=== PATIENT | female | born 1960 | race Caucasian/White ===

== ENCOUNTER 2021-04-07 15:15 | Inpatient (IN) | payer MEDICARE ==
[2021-04-07] MEDS ORDERED: hydrOXYzine 25 MG TAB PER TUBE PRN (20:02)
[2021-04-07] MEDS: Acetaminophen W/ Codeine 5 ML UDCUP PER TUBE PRN (20:14)
[2021-04-07] MEDS ORDERED: Heparin 5,000 UNITS/ML VIAL SC SCH (21:00)
[2021-04-07] MEDS ORDERED: Melatonin 3 MG TAB PER TUBE PRN (21:35)
[2021-04-07] MEDS ORDERED: Lorazepam 0.5 MG TAB PO PRN (21:35)
[2021-04-07] MEDS ORDERED: Metoprolol Tartrate 50 MG TAB PER TUBE SCH (21:45)
[2021-04-07] MEDS ORDERED: PROGESTERONE,MICRONIZED 100 MG CAP PER TUBE SCH (22:00)
[2021-04-07] MEDS ORDERED: Mirtazapine 15 MG Soltab PER TUBE SCH (22:00)
[2021-04-07] MEDS ORDERED: Pantoprazole 40 MG GRANULES PACKET PER TUBE SCH (22:00)
[2021-04-08] MEDS ORDERED: Sodium Chloride 0.9% 20 ML ONE (05:10)
[2021-04-08] MEDS: Levothyroxine Sodium 75 MCG TAB PER TUBE SCH (05:32)
[2021-04-08] MEDS ORDERED: traZODone HCl 50 MG TAB PER TUBE PRN (05:58)
[2021-04-08] MEDS ORDERED: ACETAMINOPHEN 650 MG/20.3 ML PER TUBE PRN (05:58)
[2021-04-08] MEDS ORDERED: UDCUP PER TUBE PRN (05:58)
[2021-04-08] MEDS ORDERED: hydrOXYzine 25 MG TAB PER TUBE PRN (05:58)
[2021-04-08 06:03] LABS: #Basophils 0.1 thou/uL (0.0-0.2); #Eosinphils 0.4 thou/uL (0.0-0.7); #Lymphocytes 2.4 thou/uL (1.20-3.40); #Monocytes 0.6 thou/uL (0.11-0.59); %Basophils 0.5 % (0.0-1.0); %Eosinophils 3.8 % (0.0-10.0); %Monocytes 5.3 % (0.0-10.0); %Neutrophils 67.4 % (42.0-75.0); Hemoglobin 9.2 g/dL (12.0-16.0); Mean Corpuscular Hemoglobin 30.6 pg (27.0-31.0); Mean Corpuscular Volume 98.8 fL (78.0-98.0); Mean Platelet Volume 7.8 fL (7.4-10.4); Platelet Count 263 thou/uL (130-400); RBC Distribution Width 17.1 % (11.5-14.5); Red Blood Cell (RBC) Count 3.02 mill/uL (4.20-5.40); White Blood Cell (WBC) Count 10.3 thou/uL (4.8-10.8)
[2021-04-08 06:21] LABS: ALT (SGPT) 39 U/L (8-55); AST (SGOT) 29 U/L (5-34); Albumin 3.1 g/dL (3.5-5.0); Alkaline Phosphatase 228 U/L (40-110); Anion Gap 14 mmol/L (10-20); BUN (Urea Nitrogen) 37 mg/dL (9.8-20.1); Bilirubin, Total 0.4 mg/dL (0.2-1.2); Calc. Creatinine Clearance 35 mL/min (70-130); Calcium 8.6 mg/dL (7.8-10.44); Carbon Dioxide 28 mmol/L (22-29); Chloride 101 mmol/L (98-107); Globulin 3.8 g/dL (2.4-3.5); Glucose 112 mg/dL (70-105); Potassium 4.3 mmol/L (3.5-5.1); Protein, Total 6.9 g/dL (6.0-8.3); Sodium 139 mmol/L (136-145)
[2021-04-08] MEDS ORDERED: Ferrous Sulfate 325 MG TAB PO SCH (08:00)
[2021-04-08] MEDS ORDERED: Bupropion 150 MG XL TAB PO SCH (09:00)
[2021-04-08] MEDS ORDERED: Non-Formulary Item 1 EACH (Rosuvastatin [Crestor] 20 MG Tab) PER TUBE SCH (09:00)
[2021-04-08] MEDS ORDERED: Amlodipine 5 MG TAB PER TUBE SCH (09:00)
[2021-04-08] MEDS ORDERED: TRULICITY SC SCH (09:00)
[2021-04-08] MEDS ORDERED: Metoprolol Tartrate 50 MG TAB PER TUBE SCH (09:00)
[2021-04-08] MEDS ORDERED: Pantoprazole 40 MG GRANULES PACKET PER TUBE SCH (09:00)
[2021-04-08] MEDS ORDERED: Non-Formulary Item 1 EACH (Estradiol [Estradiol] 0.5 MG Tablet) PER TUBE SCH (09:00)
[2021-04-08] MEDS: Amlodipine 5 MG TAB PER TUBE SCH (09:38)
[2021-04-08] MEDS: Estradiol 1 MG TAB PER TUBE SCH (09:39)
[2021-04-08] MEDS: Heparin 5,000 UNITS/ML VIAL SC SCH ×3 (09:39→20:09)
[2021-04-08] MEDS: Metoprolol Tartrate 50 MG TAB PER TUBE SCH ×2 (09:40→20:10)
[2021-04-08] MEDS: Rosuvastatin 10 MG TAB PER TUBE SCH (09:41)
[2021-04-08] MEDS: Pantoprazole 40 MG GRANULES PACKET PER TUBE SCH ×2 (09:41→20:09)
[2021-04-08] MEDS: Acetaminophen W/ Codeine 5 ML UDCUP PER TUBE PRN ×3 (10:22→20:08)
[2021-04-08] MEDS: Ondansetron ODT 4 MG TAB SL PRN ×2 (13:32→18:07)
[2021-04-08] MEDS: Mirtazapine 15 MG Soltab PER TUBE SCH (20:09)
[2021-04-08] MEDS: buPROPion 75 MG TAB PER TUBE SCH (20:09)
[2021-04-08] MEDS: PROGESTERONE,MICRONIZED 100 MG CAP PER TUBE SCH (20:13)
[2021-04-08] MEDS ORDERED: buPROPion 75 MG TAB PO SCH (21:00)
[2021-04-08] MEDS ORDERED: MIRTAZAPINE 30 MG PER TUBE SCH (21:00)
[2021-04-08] MEDS ORDERED: PROGESTERONE MICRONIZED 100 MG PER TUBE SCH (21:00)
[2021-04-09] MEDS: Ondansetron ODT 4 MG TAB SL PRN (01:57)
[2021-04-09] MEDS: traZODone HCl 50 MG TAB PER TUBE PRN (01:59)
[2021-04-09] MEDS: Melatonin 3 MG TAB PER TUBE PRN (01:59)
[2021-04-09] MEDS ORDERED: Sodium Chloride 0.9% 20 ML ONE (05:07)
[2021-04-09] MEDS: Levothyroxine Sodium 75 MCG TAB PER TUBE SCH (05:52)
[2021-04-09] MEDS: Acetaminophen W/ Codeine 5 ML UDCUP PER TUBE PRN ×3 (05:52→21:29)
[2021-04-09] MEDS ORDERED: Levothyroxine Sodium 75 MCG TAB PER TUBE SCH (06:00)
[2021-04-09] MEDS: Amlodipine 5 MG TAB PER TUBE SCH (09:28)
[2021-04-09] MEDS: buPROPion 75 MG TAB PER TUBE SCH ×2 (09:29→21:28)
[2021-04-09] MEDS: Estradiol 1 MG TAB PER TUBE SCH (09:29)
[2021-04-09] MEDS: Heparin 5,000 UNITS/ML VIAL SC SCH ×3 (09:29→21:29)
[2021-04-09] MEDS: Metoprolol Tartrate 50 MG TAB PER TUBE SCH ×2 (09:30→21:28)
[2021-04-09] MEDS: Pantoprazole 40 MG GRANULES PACKET PER TUBE SCH ×2 (09:30→21:28)
[2021-04-09] MEDS: Rosuvastatin 10 MG TAB PER TUBE SCH (09:30)
[2021-04-09] MEDS: Mirtazapine 15 MG Soltab PER TUBE SCH (21:28)
[2021-04-09] MEDS: PROGESTERONE,MICRONIZED 100 MG CAP PER TUBE SCH (21:51)
[2021-04-10] MEDS: Ondansetron ODT 4 MG TAB SL PRN ×2 (05:26→10:38)
[2021-04-10] MEDS: Levothyroxine Sodium 75 MCG TAB PER TUBE SCH (05:27)
[2021-04-10] MEDS: Acetaminophen W/ Codeine 5 ML UDCUP PER TUBE PRN ×4 (05:27→19:22)
[2021-04-10] MEDS ORDERED: EPOETIN ALFA EPBX SC SCH ×2 (09:00)
[2021-04-10] MEDS: Pantoprazole 40 MG GRANULES PACKET PER TUBE SCH ×2 (09:29→20:30)
[2021-04-10] MEDS: Heparin 5,000 UNITS/ML VIAL SC SCH ×3 (09:29→20:27)
[2021-04-10] MEDS: Rosuvastatin 10 MG TAB PER TUBE SCH (09:30)
[2021-04-10] MEDS: Metoprolol Tartrate 50 MG TAB PER TUBE SCH ×2 (09:30→20:27)
[2021-04-10] MEDS: Estradiol 1 MG TAB PER TUBE SCH (09:31)
[2021-04-10] MEDS: Amlodipine 5 MG TAB PER TUBE SCH (09:31)
[2021-04-10] MEDS: buPROPion 75 MG TAB PER TUBE SCH ×2 (09:33→20:27)
[2021-04-10] MEDS: EPOETIN ALFA-EPBX (ESRD) 10,000 UNIT/ML VIAL SC SCH (09:38)
[2021-04-10 14:03] LABS: SARS-CoV-2 NAA Rapid Test Not Detected (NotDetected)
[2021-04-10] MEDS: Mirtazapine 15 MG Soltab PER TUBE SCH (20:27)
[2021-04-10] MEDS: PROGESTERONE,MICRONIZED 100 MG CAP PER TUBE SCH (20:27)
[2021-04-11] MEDS: traZODone HCl 50 MG TAB PER TUBE PRN (01:08)
[2021-04-11] MEDS: Melatonin 3 MG TAB PER TUBE PRN ×2 (01:08→21:14)
[2021-04-11] MEDS: Acetaminophen W/ Codeine 5 ML UDCUP PER TUBE PRN ×4 (01:08→17:38)
[2021-04-11] MEDS: Levothyroxine Sodium 75 MCG TAB PER TUBE SCH (05:29)
[2021-04-11] MEDS: Amlodipine 5 MG TAB PER TUBE SCH (08:43)
[2021-04-11] MEDS: Metoprolol Tartrate 50 MG TAB PER TUBE SCH ×2 (08:45→21:12)
[2021-04-11] MEDS: Estradiol 1 MG TAB PER TUBE SCH (08:47)
[2021-04-11] MEDS: buPROPion 75 MG TAB PER TUBE SCH ×2 (08:47→21:12)
[2021-04-11] MEDS: Pantoprazole 40 MG GRANULES PACKET PER TUBE SCH ×2 (08:48→21:14)
[2021-04-11] MEDS: Rosuvastatin 10 MG TAB PER TUBE SCH (08:49)
[2021-04-11] MEDS: Heparin 5,000 UNITS/ML VIAL SC SCH ×3 (09:06→21:12)
[2021-04-11] MEDS: Ondansetron ODT 4 MG TAB SL PRN ×2 (18:25→21:13)
[2021-04-11] MEDS: Mirtazapine 15 MG Soltab PER TUBE SCH (21:12)
[2021-04-11] MEDS: PROGESTERONE,MICRONIZED 100 MG CAP PER TUBE SCH (21:14)
[2021-04-12] MEDS: Acetaminophen W/ Codeine 5 ML UDCUP PER TUBE PRN ×4 (00:48→17:29)
[2021-04-12] MEDS: Levothyroxine Sodium 75 MCG TAB PER TUBE SCH (07:26)
[2021-04-12] MEDS: Rosuvastatin 10 MG TAB PER TUBE SCH (08:21)
[2021-04-12] MEDS: Metoprolol Tartrate 50 MG TAB PER TUBE SCH ×2 (08:22→21:10)
[2021-04-12] MEDS: buPROPion 75 MG TAB PER TUBE SCH ×2 (08:22→21:10)
[2021-04-12] MEDS: Amlodipine 5 MG TAB PER TUBE SCH (08:22)
[2021-04-12] MEDS: Estradiol 1 MG TAB PER TUBE SCH (08:22)
[2021-04-12] MEDS: Pantoprazole 40 MG GRANULES PACKET PER TUBE SCH ×2 (08:22→20:49)
[2021-04-12] MEDS: Heparin 5,000 UNITS/ML VIAL SC SCH ×3 (08:25→21:09)
[2021-04-12] MEDS: EPOETIN ALFA-EPBX (ESRD) 10,000 UNIT/ML VIAL SC SCH (08:37)
[2021-04-12] MEDS: Loratadine 10 MG TAB PO PRN (08:37)
[2021-04-12] MEDS: Ondansetron ODT 4 MG TAB SL PRN ×3 (08:37→20:48)
[2021-04-12] MEDS: traZODone HCl 50 MG TAB PER TUBE PRN (21:10)
[2021-04-12] MEDS: Lorazepam 0.5 MG TAB PER TUBE PRN (21:10)
[2021-04-12] MEDS: Melatonin 3 MG TAB PER TUBE PRN (21:10)
[2021-04-12] MEDS: PROGESTERONE,MICRONIZED 100 MG CAP PER TUBE SCH (21:11)
[2021-04-13] MEDS: Levothyroxine Sodium 75 MCG TAB PER TUBE SCH (06:10)
[2021-04-13] MEDS: Acetaminophen W/ Codeine 5 ML UDCUP PER TUBE PRN ×3 (08:52→20:28)
[2021-04-13] MEDS: Estradiol 1 MG TAB PER TUBE SCH (08:54)
[2021-04-13] MEDS: Pantoprazole 40 MG GRANULES PACKET PER TUBE SCH ×2 (08:55→20:29)
[2021-04-13] MEDS: Rosuvastatin 10 MG TAB PER TUBE SCH (08:55)
[2021-04-13] MEDS: buPROPion 75 MG TAB PER TUBE SCH ×2 (08:55→20:29)
[2021-04-13] MEDS: Heparin 5,000 UNITS/ML VIAL SC SCH ×3 (08:58→20:30)
[2021-04-13] MEDS: Loratadine 10 MG TAB PO PRN (09:10)
[2021-04-13] MEDS: Ondansetron ODT 4 MG TAB SL PRN (09:11)
[2021-04-13] MEDS: Amlodipine 5 MG TAB PER TUBE SCH (09:12)
[2021-04-13] MEDS: Metoprolol Tartrate 50 MG TAB PER TUBE SCH ×2 (09:13→20:30)
[2021-04-13] MEDS: PROGESTERONE,MICRONIZED 100 MG CAP PER TUBE SCH (20:31)
[2021-04-13] MEDS: Melatonin 3 MG TAB PER TUBE PRN (20:45)
[2021-04-13] MEDS: Lorazepam 0.5 MG TAB PER TUBE PRN (21:58)
[2021-04-14] MEDS: Levothyroxine Sodium 75 MCG TAB PER TUBE SCH (05:12)
[2021-04-14 05:35] LABS: #Basophils 0.1 thou/uL (0.0-0.2); #Eosinphils 0.2 thou/uL (0.0-0.7); #Lymphocytes 2.7 thou/uL (1.20-3.40); #Monocytes 0.6 thou/uL (0.11-0.59); #Neutrophils 6.9 thou/uL (1.40-6.50); %Basophils 1.1 % (0.0-1.0); %Lymphocytes 25.2 % (21.0-51.0); %Monocytes 6.1 % (0.0-10.0); %Neutrophils 65.6 % (42.0-75.0); Hemoglobin 9.1 g/dL (12.0-16.0); Mean Corpuscular HGB CONC 31.8 g/dL (32.0-36.0); Mean Corpuscular Hemoglobin 31.1 pg (27.0-31.0); Mean Corpuscular Volume 97.8 fL (78.0-98.0); Mean Platelet Volume 9.1 fL (7.4-10.4); Platelet Count 235 thou/uL (130-400); RBC Distribution Width 16.4 % (11.5-14.5); Red Blood Cell (RBC) Count 2.94 mill/uL (4.20-5.40); White Blood Cell (WBC) Count 10.6 thou/uL (4.8-10.8)
[2021-04-14 05:41] LABS: Anion Gap 14 mmol/L (10-20); BUN (Urea Nitrogen) 20 mg/dL (9.8-20.1); Calc. Creatinine Clearance 47 mL/min (70-130); Calcium 8.5 mg/dL (7.8-10.44); Carbon Dioxide 28 mmol/L (22-29); Chloride 99 mmol/L (98-107); Glucose 109 mg/dL (70-105); Potassium 3.4 mmol/L (3.5-5.1); Sodium 138 mmol/L (136-145)
[2021-04-14] MEDS: Rosuvastatin 10 MG TAB PER TUBE SCH (08:55)
[2021-04-14] MEDS: buPROPion 75 MG TAB PER TUBE SCH ×2 (08:55→19:59)
[2021-04-14] MEDS: Estradiol 1 MG TAB PER TUBE SCH (08:55)
[2021-04-14] MEDS: Pantoprazole 40 MG GRANULES PACKET PER TUBE SCH ×2 (08:56→20:01)
[2021-04-14] MEDS: Heparin 5,000 UNITS/ML VIAL SC SCH ×3 (08:56→20:00)
[2021-04-14] MEDS: EPOETIN ALFA-EPBX (ESRD) 10,000 UNIT/ML VIAL SC SCH (09:00)
[2021-04-14] MEDS: Acetaminophen W/ Codeine 5 ML UDCUP PER TUBE PRN ×3 (09:01→19:54)
[2021-04-14] MEDS: Metoprolol Tartrate 50 MG TAB PER TUBE SCH ×2 (09:01→19:59)
[2021-04-14] MEDS: Loratadine 10 MG TAB PO PRN (09:11)
[2021-04-14] MEDS: PROGESTERONE,MICRONIZED 100 MG CAP PER TUBE SCH (20:01)
[2021-04-14] MEDS: Lorazepam 0.5 MG TAB PER TUBE PRN (22:51)
[2021-04-15] MEDS: Acetaminophen W/ Codeine 5 ML UDCUP PER TUBE PRN ×4 (02:19→19:55)
[2021-04-15] MEDS: Levothyroxine Sodium 75 MCG TAB PER TUBE SCH (05:15)
[2021-04-15] MEDS: Rosuvastatin 10 MG TAB PER TUBE SCH (08:17)
[2021-04-15] MEDS: Heparin 5,000 UNITS/ML VIAL SC SCH ×3 (08:17→20:01)
[2021-04-15] MEDS: Pantoprazole 40 MG GRANULES PACKET PER TUBE SCH ×2 (08:17→20:05)
[2021-04-15] MEDS: buPROPion 75 MG TAB PER TUBE SCH ×2 (08:18→20:05)
[2021-04-15] MEDS: Metoprolol Tartrate 50 MG TAB PER TUBE SCH ×2 (08:18→20:05)
[2021-04-15] MEDS: Estradiol 1 MG TAB PER TUBE SCH (08:18)
[2021-04-15] MEDS: Loratadine 10 MG TAB PO PRN (08:20)
[2021-04-15] MEDS: Ondansetron ODT 4 MG TAB SL PRN (14:48)
[2021-04-15] MEDS: PROGESTERONE,MICRONIZED 100 MG CAP PER TUBE SCH (20:03)
[2021-04-16] MEDS: Acetaminophen W/ Codeine 5 ML UDCUP PER TUBE PRN ×4 (02:22→20:46)
[2021-04-16] MEDS: Levothyroxine Sodium 75 MCG TAB PER TUBE SCH (05:22)
[2021-04-16] MEDS: Pantoprazole 40 MG GRANULES PACKET PER TUBE SCH ×2 (09:40→20:47)
[2021-04-16] MEDS: Heparin 5,000 UNITS/ML VIAL SC SCH ×3 (09:41→20:49)
[2021-04-16] MEDS: buPROPion 75 MG TAB PER TUBE SCH ×2 (09:42→20:48)
[2021-04-16] MEDS: Rosuvastatin 10 MG TAB PER TUBE SCH (09:42)
[2021-04-16] MEDS: Metoprolol Tartrate 50 MG TAB PER TUBE SCH ×2 (09:43→20:47)
[2021-04-16] MEDS: Estradiol 1 MG TAB PER TUBE SCH (09:43)
[2021-04-16] MEDS: Ondansetron ODT 4 MG TAB SL PRN ×2 (11:36→16:55)
[2021-04-16] MEDS: Loratadine 10 MG TAB PO PRN (11:36)
[2021-04-16] MEDS: PROGESTERONE,MICRONIZED 100 MG CAP PER TUBE SCH (20:46)
[2021-04-16] MEDS: Melatonin 3 MG TAB PER TUBE PRN (20:48)
[2021-04-17] MEDS: Acetaminophen W/ Codeine 5 ML UDCUP PER TUBE PRN ×4 (05:29→20:10)
[2021-04-17] MEDS: Levothyroxine Sodium 75 MCG TAB PER TUBE SCH (05:30)
[2021-04-17] MEDS: buPROPion 75 MG TAB PER TUBE SCH ×2 (08:38→21:23)
[2021-04-17] MEDS: EPOETIN ALFA-EPBX (ESRD) 10,000 UNIT/ML VIAL SC SCH (08:38)
[2021-04-17] MEDS: Estradiol 1 MG TAB PER TUBE SCH (08:38)
[2021-04-17] MEDS: Metoprolol Tartrate 50 MG TAB PER TUBE SCH ×2 (08:39→21:23)
[2021-04-17] MEDS: Heparin 5,000 UNITS/ML VIAL SC SCH ×3 (08:39→21:23)
[2021-04-17] MEDS: Loratadine 10 MG TAB PO SCH (08:39)
[2021-04-17] MEDS: Pantoprazole 40 MG GRANULES PACKET PER TUBE SCH ×2 (08:40→21:24)
[2021-04-17] MEDS: Rosuvastatin 10 MG TAB PER TUBE SCH (08:40)
[2021-04-17] MEDS: Ondansetron ODT 4 MG TAB SL PRN ×2 (10:09→18:45)
[2021-04-17] MEDS: Lidocaine 4% Topical Sol 50 ML BOT TOP PRN (11:15)
[2021-04-17] MEDS: Lorazepam 0.5 MG TAB PER TUBE PRN (21:26)
[2021-04-17] MEDS: PROGESTERONE,MICRONIZED 100 MG CAP PER TUBE SCH (21:26)
[2021-04-18] MEDS: Acetaminophen W/ Codeine 5 ML UDCUP PER TUBE PRN ×5 (01:28→21:15)
[2021-04-18] MEDS: Levothyroxine Sodium 75 MCG TAB PER TUBE SCH (05:35)
[2021-04-18] MEDS: Heparin 5,000 UNITS/ML VIAL SC SCH ×3 (08:44→21:16)
[2021-04-18] MEDS: buPROPion 75 MG TAB PER TUBE SCH ×2 (08:44→21:19)
[2021-04-18] MEDS: Estradiol 1 MG TAB PER TUBE SCH (08:44)
[2021-04-18] MEDS: Metoprolol Tartrate 50 MG TAB PER TUBE SCH ×2 (08:45→21:19)
[2021-04-18] MEDS: Pantoprazole 40 MG GRANULES PACKET PER TUBE SCH ×2 (08:45→21:19)
[2021-04-18] MEDS: Loratadine 10 MG TAB PO SCH (08:45)
[2021-04-18] MEDS: Rosuvastatin 10 MG TAB PER TUBE SCH (08:45)
[2021-04-18] MEDS: Ondansetron ODT 4 MG TAB SL PRN (16:41)
[2021-04-18] MEDS: PROGESTERONE,MICRONIZED 100 MG CAP PER TUBE SCH (21:18)
[2021-04-18] MEDS: Melatonin 3 MG TAB PER TUBE PRN (21:19)
[2021-04-19] MEDS: Acetaminophen W/ Codeine 5 ML UDCUP PER TUBE PRN ×5 (02:11→20:44)
[2021-04-19] MEDS: Levothyroxine Sodium 75 MCG TAB PER TUBE SCH (05:57)
[2021-04-19] MEDS: buPROPion 75 MG TAB PER TUBE SCH ×2 (08:43→20:48)
[2021-04-19] MEDS: Estradiol 1 MG TAB PER TUBE SCH (08:44)
[2021-04-19] MEDS: EPOETIN ALFA-EPBX (ESRD) 10,000 UNIT/ML VIAL SC SCH (08:44)
[2021-04-19] MEDS: Metoprolol Tartrate 50 MG TAB PER TUBE SCH ×2 (08:45→20:48)
[2021-04-19] MEDS: Heparin 5,000 UNITS/ML VIAL SC SCH ×3 (08:45→20:45)
[2021-04-19] MEDS: Rosuvastatin 10 MG TAB PER TUBE SCH (08:45)
[2021-04-19] MEDS: Pantoprazole 40 MG GRANULES PACKET PER TUBE SCH ×2 (08:45→20:48)
[2021-04-19] MEDS: Loratadine 10 MG TAB PO SCH (08:45)
[2021-04-19] MEDS: Ondansetron ODT 4 MG TAB SL PRN (16:25)
[2021-04-19] MEDS: Melatonin 3 MG TAB PER TUBE PRN (20:47)
[2021-04-19] MEDS: PROGESTERONE,MICRONIZED 100 MG CAP PER TUBE SCH (20:50)
[2021-04-20] MEDS: Acetaminophen W/ Codeine 5 ML UDCUP PER TUBE PRN ×4 (02:09→22:14)
[2021-04-20] MEDS: Levothyroxine Sodium 75 MCG TAB PER TUBE SCH (06:09)
[2021-04-20] MEDS: Estradiol 1 MG TAB PER TUBE SCH (09:19)
[2021-04-20] MEDS: buPROPion 75 MG TAB PER TUBE SCH ×2 (09:19→21:55)
[2021-04-20] MEDS: Pantoprazole 40 MG GRANULES PACKET PER TUBE SCH ×2 (09:19→21:55)
[2021-04-20] MEDS: Rosuvastatin 10 MG TAB PER TUBE SCH (09:20)
[2021-04-20] MEDS: Loratadine 10 MG TAB PO SCH (09:20)
[2021-04-20] MEDS: Metoprolol Tartrate 50 MG TAB PER TUBE SCH ×2 (09:21→21:55)
[2021-04-20] MEDS: Heparin 5,000 UNITS/ML VIAL SC SCH ×3 (09:22→21:55)
[2021-04-20] MEDS: Ondansetron ODT 4 MG TAB SL PRN ×2 (09:31→16:34)
[2021-04-20] MEDS: PROGESTERONE,MICRONIZED 100 MG CAP PER TUBE SCH (21:57)
[2021-04-20] MEDS: traZODone HCl 50 MG TAB PER TUBE PRN (22:14)
[2021-04-21] MEDS: Lorazepam 0.5 MG TAB PER TUBE PRN ×2 (00:26→22:50)
[2021-04-21] MEDS: Levothyroxine Sodium 75 MCG TAB PER TUBE SCH (05:34)
[2021-04-21] MEDS: Acetaminophen W/ Codeine 5 ML UDCUP PER TUBE PRN ×5 (05:35→21:44)
[2021-04-21] MEDS ORDERED: Calcium Carbonate 500 MG ChewTAB PO PRN (07:53)
[2021-04-21] MEDS: Fluticasone Propionate Nasal Spray 16 gm Bottle NASAL SCH (09:11)
[2021-04-21] MEDS: Heparin 5,000 UNITS/ML VIAL SC SCH ×3 (09:12→21:43)
[2021-04-21] MEDS: EPOETIN ALFA-EPBX (ESRD) 10,000 UNIT/ML VIAL SC SCH (09:12)
[2021-04-21] MEDS: Pantoprazole 40 MG GRANULES PACKET PER TUBE SCH ×2 (09:13→21:43)
[2021-04-21] MEDS: buPROPion 75 MG TAB PER TUBE SCH ×2 (09:13→21:42)
[2021-04-21] MEDS: Metoprolol Tartrate 50 MG TAB PER TUBE SCH ×2 (09:14→21:43)
[2021-04-21] MEDS: Estradiol 1 MG TAB PER TUBE SCH (09:14)
[2021-04-21] MEDS: Rosuvastatin 10 MG TAB PER TUBE SCH (09:14)
[2021-04-21] MEDS: Loratadine 10 MG TAB PO SCH (09:14)
[2021-04-21] MEDS: Ondansetron ODT 4 MG TAB SL PRN ×3 (09:41→21:42)
[2021-04-21] MEDS: Lidocaine 4% Topical Sol 50 ML BOT TOP PRN (09:44)
[2021-04-21] MEDS: traZODone HCl 50 MG TAB PER TUBE PRN (21:42)
[2021-04-21] MEDS: PROGESTERONE,MICRONIZED 100 MG CAP PER TUBE SCH (21:43)
[2021-04-22] MEDS: Levothyroxine Sodium 75 MCG TAB PER TUBE SCH (05:54)
[2021-04-22] MEDS: Acetaminophen W/ Codeine 5 ML UDCUP PER TUBE PRN ×4 (05:54→22:37)
[2021-04-22] MEDS: Pantoprazole 40 MG GRANULES PACKET PER TUBE SCH ×2 (09:14→20:42)
[2021-04-22] MEDS: Rosuvastatin 10 MG TAB PER TUBE SCH (09:15)
[2021-04-22] MEDS: Estradiol 1 MG TAB PER TUBE SCH (09:15)
[2021-04-22] MEDS: buPROPion 75 MG TAB PER TUBE SCH ×2 (09:15→20:42)
[2021-04-22] MEDS: Loratadine 10 MG TAB PO SCH (09:15)
[2021-04-22] MEDS: Heparin 5,000 UNITS/ML VIAL SC SCH ×3 (09:16→20:42)
[2021-04-22] MEDS: Fluticasone Propionate Nasal Spray 16 gm Bottle NASAL SCH (09:16)
[2021-04-22] MEDS: Metoprolol Tartrate 50 MG TAB PER TUBE SCH ×2 (09:16→20:42)
[2021-04-22] MEDS: PROGESTERONE,MICRONIZED 100 MG CAP PER TUBE SCH (20:41)
[2021-04-22] MEDS: traZODone HCl 50 MG TAB PER TUBE PRN (20:44)
[2021-04-22] MEDS ORDERED: Polyethylene Glycol 3350 17 GM Packet PO PRN (21:08)
[2021-04-22] MEDS ORDERED: Senokot S 8.6-50 MG TAB PER TUBE PRN (21:12)
[2021-04-22] MEDS: Polyethylene Glycol 3350 17 GM Packet PER TUBE PRN (22:24)
[2021-04-23] MEDS: Lorazepam 0.5 MG TAB PER TUBE PRN (02:39)
[2021-04-23] MEDS: Levothyroxine Sodium 75 MCG TAB PER TUBE SCH (05:32)
[2021-04-23 05:34] VITALS: BMI 32.1
[2021-04-23] MEDS: Acetaminophen W/ Codeine 5 ML UDCUP PER TUBE PRN ×4 (05:38→22:14)
[2021-04-23] MEDS: Pantoprazole 40 MG GRANULES PACKET PER TUBE SCH ×2 (08:44→21:58)
[2021-04-23] MEDS: buPROPion 75 MG TAB PER TUBE SCH ×2 (08:44→21:59)
[2021-04-23] MEDS: Heparin 5,000 UNITS/ML VIAL SC SCH ×3 (08:45→21:58)
[2021-04-23] MEDS: Metoprolol Tartrate 50 MG TAB PER TUBE SCH ×2 (08:45→21:59)
[2021-04-23] MEDS: Estradiol 1 MG TAB PER TUBE SCH (08:45)
[2021-04-23] MEDS: Rosuvastatin 10 MG TAB PER TUBE SCH (08:45)
[2021-04-23] MEDS: Loratadine 10 MG TAB PO SCH (08:45)
[2021-04-23] MEDS: Fluticasone Propionate Nasal Spray 16 gm Bottle NASAL SCH (08:46)
[2021-04-23] MEDS: traZODone HCl 50 MG TAB PER TUBE PRN (22:36)
[2021-04-23] MEDS: PROGESTERONE,MICRONIZED 100 MG CAP PER TUBE SCH (22:49)
[2021-04-24] MEDS: Levothyroxine Sodium 75 MCG TAB PER TUBE SCH (06:27)
[2021-04-24] MEDS: Rosuvastatin 10 MG TAB PER TUBE SCH (09:13)
[2021-04-24] MEDS: Estradiol 1 MG TAB PER TUBE SCH (09:14)
[2021-04-24] MEDS: EPOETIN ALFA-EPBX (ESRD) 10,000 UNIT/ML VIAL SC SCH (09:14)
[2021-04-24] MEDS: buPROPion 75 MG TAB PER TUBE SCH ×2 (09:14→22:16)
[2021-04-24] MEDS: Fluticasone Propionate Nasal Spray 16 gm Bottle NASAL SCH (09:15)
[2021-04-24] MEDS: Loratadine 10 MG TAB PO SCH (09:16)
[2021-04-24] MEDS: Metoprolol Tartrate 50 MG TAB PER TUBE SCH ×2 (09:16→22:17)
[2021-04-24] MEDS: Pantoprazole 40 MG GRANULES PACKET PER TUBE SCH ×2 (09:16→22:17)
[2021-04-24] MEDS: Heparin 5,000 UNITS/ML VIAL SC SCH ×3 (09:16→22:16)
[2021-04-24] MEDS: Acetaminophen W/ Codeine 5 ML UDCUP PER TUBE PRN ×2 (09:17→15:39)
[2021-04-24] MEDS: Polyethylene Glycol 3350 17 GM Packet PER TUBE PRN (12:11)
[2021-04-24] MEDS: Ondansetron ODT 4 MG TAB SL PRN ×2 (12:11→22:16)
[2021-04-24] MEDS: Lorazepam 0.5 MG TAB PER TUBE PRN ×2 (12:11→23:26)
[2021-04-24] MEDS: traZODone HCl 50 MG TAB PER TUBE PRN (22:17)
[2021-04-24] MEDS: PROGESTERONE,MICRONIZED 100 MG CAP PER TUBE SCH (22:17)
[2021-04-25] MEDS: Levothyroxine Sodium 75 MCG TAB PER TUBE SCH (05:43)
[2021-04-25] MEDS: Acetaminophen W/ Codeine 5 ML UDCUP PER TUBE PRN ×4 (05:52→21:56)
[2021-04-25] MEDS: buPROPion 75 MG TAB PER TUBE SCH ×2 (09:09→21:57)
[2021-04-25] MEDS: Rosuvastatin 10 MG TAB PER TUBE SCH (09:09)
[2021-04-25] MEDS: Loratadine 10 MG TAB PO SCH (09:09)
[2021-04-25] MEDS: Estradiol 1 MG TAB PER TUBE SCH (09:09)
[2021-04-25] MEDS: Metoprolol Tartrate 50 MG TAB PER TUBE SCH ×2 (09:09→21:58)
[2021-04-25] MEDS: Fluticasone Propionate Nasal Spray 16 gm Bottle NASAL SCH (09:09)
[2021-04-25] MEDS: Pantoprazole 40 MG GRANULES PACKET PER TUBE SCH ×2 (09:10→21:57)
[2021-04-25] MEDS: Heparin 5,000 UNITS/ML VIAL SC SCH ×3 (09:10→21:58)
[2021-04-25] MEDS: PROGESTERONE,MICRONIZED 100 MG CAP PER TUBE SCH (21:58)
[2021-04-25] MEDS: Lorazepam 0.5 MG TAB PER TUBE PRN (21:59)
[2021-04-26] MEDS: traZODone HCl 50 MG TAB PER TUBE PRN (00:44)
[2021-04-26] MEDS: Acetaminophen W/ Codeine 5 ML UDCUP PER TUBE PRN ×3 (06:01→15:28)
[2021-04-26] MEDS: Levothyroxine Sodium 75 MCG TAB PER TUBE SCH (06:02)
[2021-04-26] MEDS: Fluticasone Propionate Nasal Spray 16 gm Bottle NASAL SCH (09:02)
[2021-04-26] MEDS: buPROPion 75 MG TAB PER TUBE SCH (09:03)
[2021-04-26] MEDS: EPOETIN ALFA-EPBX (ESRD) 10,000 UNIT/ML VIAL SC SCH (09:03)
[2021-04-26] MEDS: Heparin 5,000 UNITS/ML VIAL SC SCH ×3 (09:04→20:39)
[2021-04-26] MEDS: Loratadine 10 MG TAB PO SCH (09:04)
[2021-04-26] MEDS: Estradiol 1 MG TAB PER TUBE SCH (09:04)
[2021-04-26] MEDS: Pantoprazole 40 MG GRANULES PACKET PER TUBE SCH (09:05)
[2021-04-26] MEDS: Rosuvastatin 10 MG TAB PER TUBE SCH (09:05)
[2021-04-26] MEDS: Metoprolol Tartrate 50 MG TAB PER TUBE SCH (09:05)
[2021-04-26] MEDS: Ondansetron ODT 4 MG TAB SL PRN (15:29)
[2021-04-26] MEDS ORDERED: hydrOXYzine 25 MG TAB PO PRN (16:31)
[2021-04-26] MEDS ORDERED: Lorazepam 0.5 MG TAB PO PRN (16:31)
[2021-04-26] MEDS ORDERED: Melatonin 3 MG TAB PO PRN (16:33)
[2021-04-26] MEDS ORDERED: Polyethylene Glycol 3350 17 GM Packet PO PRN (16:37)
[2021-04-26] MEDS ORDERED: traZODone HCl 50 MG TAB PO PRN (16:38)
[2021-04-26] MEDS ORDERED: Senokot S 8.6-50 MG TAB PO PRN (16:38)
[2021-04-26] MEDS ORDERED: Acetaminophen 325 MG TAB PO PRN (16:45)
[2021-04-26] MEDS: buPROPion 75 MG TAB PO SCH (20:37)
[2021-04-26] MEDS: Metoprolol Tartrate 50 MG TAB PO SCH (20:38)
[2021-04-26] MEDS: PROGESTERONE,MICRONIZED 100 MG CAP PO SCH (20:38)
[2021-04-26] MEDS: Acetaminophen W/ Codeine 5 ML UDCUP PO PRN (20:41)
[2021-04-27] MEDS: Acetaminophen W/ Codeine 5 ML UDCUP PO PRN ×4 (05:35→20:58)
[2021-04-27] MEDS: Levothyroxine Sodium 75 MCG TAB PO SCH (05:37)
[2021-04-27] MEDS ORDERED: Lactulose 10 GM/15 ML Oral Solution ONE (06:56)
[2021-04-27] MEDS: buPROPion 75 MG TAB PO SCH ×2 (09:21→20:54)
[2021-04-27] MEDS: Estradiol 1 MG TAB PO SCH (09:21)
[2021-04-27] MEDS: Fluticasone Propionate Nasal Spray 16 gm Bottle NASAL SCH (09:22)
[2021-04-27] MEDS: Heparin 5,000 UNITS/ML VIAL SC SCH ×3 (09:22→20:55)
[2021-04-27] MEDS: Metoprolol Tartrate 50 MG TAB PO SCH ×2 (09:23→21:00)
[2021-04-27] MEDS: Loratadine 10 MG TAB PO SCH (09:23)
[2021-04-27] MEDS: Rosuvastatin 10 MG TAB PO SCH (09:24)
[2021-04-27] MEDS: PROGESTERONE,MICRONIZED 100 MG CAP PO SCH (21:02)
[2021-04-28] MEDS: Levothyroxine Sodium 75 MCG TAB PO SCH (05:33)
[2021-04-28 08:18] VITALS: BP 124/76; TEMP 98.3
[2021-04-28] MEDS: Heparin 5,000 UNITS/ML VIAL SC SCH ×2 (08:45→14:53)
[2021-04-28] MEDS: Fluticasone Propionate Nasal Spray 16 gm Bottle NASAL SCH (08:47)
[2021-04-28] MEDS: EPOETIN ALFA-EPBX (ESRD) 10,000 UNIT/ML VIAL SC SCH (09:04)
[2021-04-28] MEDS: Lidocaine 4% Topical Sol 50 ML BOT TOP PRN (09:07)
[2021-04-28] MEDS: Acetaminophen W/ Codeine 5 ML UDCUP PO PRN ×2 (09:08→13:48)
[2021-04-28] MEDS: Estradiol 1 MG TAB PO SCH (09:10)
[2021-04-28] MEDS: buPROPion 75 MG TAB PO SCH (09:11)
[2021-04-28] MEDS: Metoprolol Tartrate 50 MG TAB PO SCH (09:11)
[2021-04-28] MEDS: Loratadine 10 MG TAB PO SCH (09:11)
[2021-04-28] MEDS: Rosuvastatin 10 MG TAB PO SCH (09:11)
== END 2021-04-27 23:59 | DRG 947 ==
LOC: INTOOBSV 18:04 → OBSVTOIN 18:04 → NAV ACUTE 18:04
PROVIDERS: ADMIT Family Medicine; ATTEND Family Medicine
DX: R53.1 Weakness (principal); K65.9 Peritonitis, unspecified; N17.0 Acute kidney failure with tubular necrosis; K57.20 Diverticulitis of large intestine with perforation and abscess without bleeding; D62 Acute posthemorrhagic anemia; R13.10 Dysphagia, unspecified; M19.90 Unspecified osteoarthritis, unspecified site; I10 Essential (primary) hypertension; E03.9 Hypothyroidism, unspecified; R00.0 Tachycardia, unspecified; J30.9 Allergic rhinitis, unspecified; F32.9 Major depressive disorder, single episode, unspecified; M79.604 Pain in right leg; Z79.899 Other long term (current) drug therapy; Z88.8 Allergy status to other drugs, medicaments and biological substances; Z90.49 Acquired absence of other specified parts of digestive tract; Z93.1 Gastrostomy status; Z93.3 Colostomy status; Z99.2 Dependence on renal dialysis; Z20.822 Contact with and (suspected) exposure to COVID-19; F41.9 Anxiety disorder, unspecified; Z79.890 Hormone replacement therapy
CPT/HCPCS: 0240U; 36415; 71045; 74018; 80048; 80053; 85025; 94640; 97602; J1644; J7620; Q0162; Q5105